=== PATIENT | female | born 1955 | race Caucasian/White ===

== ENCOUNTER 2021-05-09 01:54 | Emergency (ER) | payer MEDICARE ==
[2021-05-09 02:47] LABS: HEMOGLOBIN 13.5 gm/dl (12.3-15.3); RED BLOOD COUNT 4.6 M/UL (4.00-5.10); WHITE BLOOD COUNT 10.1 K/UL (4.5-11.0)
[2021-05-09 03:22] LABS: BUN/CREATININE RATIO 26 (0-10)
[2021-05-09] MEDS ORDERED: NORVASC5 MG PO (05:29)
== END 2021-05-09 05:35 | disposition home or self-care (01) ==
LOC: ER1 01:54
PROVIDERS: Physician Assistant
DX: I10 Essential (primary) hypertension (principal); Z88.8 Allergy status to other drugs, medicaments and biological substances; F17.210 Nicotine dependence, cigarettes, uncomplicated
CPT/HCPCS: 70450; 71045; 80053; 82550; 82553; 83874; 84484; 85025; 93005; 99284

== ENCOUNTER 2021-11-29 23:55 | Emergency (ER) | payer OTHER ==
[~2021-11-29 23:55] MED LIST: NORVASC5 MG PO
[2021-11-30] MEDS ORDERED: IBUPROFEN600 MG PO (02:33)
== END 2021-11-30 02:40 | disposition home or self-care (01) ==
LOC: ER1 23:55
DX: S13.9XXA Sprain of joints and ligaments of unspecified parts of neck, initial encounter (principal); S29.012A Strain of muscle and tendon of back wall of thorax, initial encounter; S39.012A Strain of muscle, fascia and tendon of lower back, initial encounter; F17.210 Nicotine dependence, cigarettes, uncomplicated; R40.2410 Glasgow coma scale score 13-15, unspecified time; Z88.1 Allergy status to other antibiotic agents; Z88.7 Allergy status to serum and vaccine; Z88.2 Allergy status to sulfonamides; V89.2XXA Person injured in unspecified motor-vehicle accident, traffic, initial encounter
CPT/HCPCS: 72125; 72128; 72131; 99283